=== PATIENT | male | born 1960 | race Caucasian/White ===

== ENCOUNTER 2017-06-29 09:50 | Inpatient (IN) ==
[2017-06-29] MEDS ORDERED: 0.9 % SODIUM CHLORIDE 1,000 ML IV ONE ×2 (10:05→12:10)
[2017-06-29] MEDS ORDERED: ONDANSETRON 4 MG/2 ML VIAL IV ONE (10:05)
[2017-06-29] MEDS ORDERED: ACETAMINOPHEN 325 MG TABLET PO ONE (10:11)
--- NOTE | 2017-06-29 10:13 | Emergency Department Note ---
Headache HPI - General Chief Complaint: Headache Stated Complaint: severe headache,n/v, achy,diahrrea, ill for 7 days Time Seen by Provider: 06/29/17 09:53 Mode of arrival: ambulatory Limitations: no limitations - Related Data Home Medications Medication Instructions Recorded Confirmed No Known Home Meds [No Known Home 06/27/17 06/27/17 Meds] Allergies Allergy/AdvReac Type Severity Reaction Status Date / Time Opioids - Morphine Analogues AdvReac Mild Vomiting Verified 06/29/17 11:10 Review of Systems All systems ED: reviewed and negative except as stated. Headache PMH - Past Medical History Medical history: Reports: other (Sinusitis, gastroenteritis) - Social History smoking status: Current every day smoker Physical Exam Limitations: no limitations Course Course Narrative: At [address] Gutierrez, the hospitalist who agrees to admit the patient. Patient's requiring oxygen, has hyponatremia, and bilateral pneumonia. Vital Signs Temperature 99.3 F H 06/29/17 09:51 Pulse Rate 88 06/29/17 09:51 Respiratory Rate 16 06/29/17 09:51 Blood Pressure 115/68 06/29/17 09:51 Pulse Oximetry (%) 89 L 06/29/17 09:51 Temperature 101.0 F H 06/29/17 11:03 Pulse Rate 78 06/29/17 11:01 Respiratory Rate 16 06/29/17 09:51 Blood Pressure 112/71 06/29/17 11:01 Pulse Oximetry (%) 96 06/29/17 11:01 Headache - Lab Data Lab results reviewed: Yes I reviewed the patient's lab results. Result diagrams: 06/29/17 10:08 06/29/17 10:08 Lab Results 06/29/17 06/29/17 06/29/17 Range/Units 10:08 10:08 10:08 WBC 9.0 (4.5-11.0) K/mcL RBC 4.29 L (4.50-5.90) M/mcL Hgb 14.4 (13.5-16.5) g/dL Hct 41.8 (41.0-55.0) % MCV 97.5 (80.0-100.0) fL MCH 33.5 (26.0-34.0) pg MCHC 34.3 (31.0-36.0) g/dL RDW 14.9 H (11.5-14.5) % Plt Count 138 L (140-440) K/mcL MPV 7.9 (7.4-10.4) fL Gran % 88.0 H (38.0-78.0) % Lymph % (Auto) 5.1 L (15.5-49.0) % [place] % (Auto) 6.9 (1.0-12.0) % Eos % (Auto) 0 (0.0-7.0) % Baso % (Auto) 0 (0.0-2.0) % Gran # 7.9 (1.8-8.0) K/mcL Lymph # (Auto) 0.5 L (1.5-4.8) K/mcL [place] # (Auto) 0.6 (0.1-0.9) K/mcL Eos # (Auto) 0 (0.0-0.7) K/mcL Baso # (Auto) 0 (0.0-0.3) K/mcL VBG Lactic Acid 1.0 (0.5-2.2) mmol/L Sodium 129 L (133-145) mmol/L Potassium 3.4 (3.3-5.1) mmol/L Chloride 90 L (96-108) mmol/L Carbon Dioxide 27 (22-30) mmol/L Anion Gap 12.0 (8-16) BUN 9 (6-20) mg/dl Creatinine 0.8 (0.7-1.2) mg/dl GFR Calculation 101 Glucose 128 H (70-105) mg/dL Calcium 8.1 L (8.6-10.4) mg/dl Total Bilirubin 0.5 (0.0-1.0) mg/dL AST 22 (0-37) U/l ALT 10 (0-40) U/l Alkaline Phosphatase 51 (39-117) U/L Total Protein 6.0 (5.9-8.4) gm/dL Albumin 3.4 (3.2-5.2) gm/dL Globulin 2.6 (2.2-3.7) gm/dL Albumin/Globulin Ratio 1.3 (1.0-2.3) - Radiology Data Radiology results reviewed: Yes I reviewed the patient's radiology results. Disposition Pt seen by ROLL FORGER/PA only: Yes Clinical Impression: Pneumonia, Hypoxia, Hyponatremia, Bilateral pleural effusion Disposition: Xfer As Inpt ([facility]) Condition: Good Time of Disposition: 11:20
--- NOTE | 2017-06-29 10:35 | Cat Scan Report ---
CLINICAL INFORMATION: Headache for seven days COMPARISON: None. TECHNIQUE: 2.5 mm helical slices were obtained in the skull base to vertex. Following reconstruction, axial reformatted images were reviewed at bone and parenchymal windows. The exam was performed using radiation dose optimization techniques including, but not limited to, automated exposure control, adjustment of the mA and/or kV according to patient size and use of iterative reconstruction technique. FINDINGS: The ventricles, sulci, fissures, and cisterns are normal in size and configuration. No extra-axial fluid collections are identified. The cerebrum, brainstem and cerebellum are unremarkable. There is no evidence of hemorrhage, mass effect, or edema. Bone windows show no osseous abnormality. IMPRESSION: Normal head CT without contrast. Interpreted and Authenticated by: Stephon Romano 06/29/17
[2017-06-29 10:37] LABS: Basophils # (Auto) 0 K/mcL (0.0-0.3); Basophils % (Auto) 0 % (0.0-2.0); Eosinophils # (Auto) 0 K/mcL (0.0-0.7); Eosinophils % (Auto) 0 % (0.0-7.0); Lymphocytes # (Auto) 0.5 K/mcL (1.5-4.8); Lymphocytes % (Auto) 5.1 % (15.5-49.0); Mean Cell Volume 97.5 fL (80.0-100.0); Mean Corpuscular HGB Conc 34.3 g/dL (31.0-36.0); Mean Corpuscular Hemoglobin 33.5 pg (26.0-34.0); Monocytes # (Auto) 0.6 K/mcL (0.1-0.9); Monocytes % (Auto) 6.9 % (1.0-12.0); Platelet Count 138 K/mcL (140-440); RBC 4.29 M/mcL (4.50-5.90); Red Cell Distribution Width 14.9 % (11.5-14.5)
--- NOTE | 2017-06-29 10:48 | XRay Report ---
CLINICAL INFORMATION: Fever and shortness of breath and hypoxia COMPARISON: 06/27/2017 FINDINGS: Heart size, mediastinal pulmonary vessels are unremarkable. There are now moderate-sized fascial biliary infiltrates in the left mid and both lower lung wood which have progressed considerably since the previous study. Small bilateral pleural effusions noted. Bones and soft tissues are normal. IMPRESSION: Moderate sized patchy infiltrates in the left mid and both lower lungs with small bilateral pleural effusions. Interpreted and Authenticated by: Stephon Romano 06/29/17
[2017-06-29] MEDS ORDERED: cefTRIAXone 1 GM VIAL IV ONE (10:54)
[2017-06-29 11:05] LABS: ALT/SGPT 10 U/l (0-40); Albumin 3.4 gm/dL (3.2-5.2); Albumin/Globulin Ratio 1.3 (1.0-2.3); Alkaline Phosphatase 51 U/L (39-117); Blood Urea Nitrogen 9 mg/dl (6-20)
[2017-06-29 11:26] LABS: Appearance,Urine CLEAR; Bacteria,Urine 0 /hpf (0); Bilirubin,Urine NEG (NEG); Color,Urine YELLOW; Glucose,Urine (UA) NEGATIVE (NEG); Leukocyte Esterase,Urine NEG /uL (NEG); Mucus,Urine FEW /hpf (0); Protein,Urine 30 mg/dL (NEG); Specific Gravity,Urine 1.019 (1.000-1.035); Urine Blood 0.03 mg/dL (<0.03); Urine RBC 10 /hpf (0-1); Urine Squamous Epithelial Cell 0 /hpf (0-4); Urine WBC 2 /hpf (0-4)
--- NOTE | 2017-06-29 11:46 | Internal Med History&Physical ---
Medical - H&P: HPI Patient information: Note initiated : 06/29/17 at 11:45 am Service Date, if different from initiated Date: [] Patient: Randy Child a 57 y/o M admitted on for severe headache,n/v, cris, terence, ill for 7 days. Chief Complaint: [] History of present illness: Mr. Child is a 57 year old Male, with no pmh, presents to the ER today with complaints of not feeling well x 1 week, headache, severe x 1 week, decreased appetitie, nausea and vomiting. The patient had flu like illness and was seen in the ER opn 06/27/17, X ray chest then showed only mild interstitial inflmmation. The patient presents again with headache, nausea and vomiting, noting has not felt well since then, denies any sick contacts, homeless. The patient notes his headache is all over, severe, throbbing, worse iwth light and noise. He reports nausea and vomiting, poor oral intake x 1 week, he has no mucous or blood in stools or vomitus. He has weakness, fatigue, cough, unable to tell me the quality of sputum production. given that his symptoms have not improved, he presented to the hospital for further evaluation. THis time he had a fever 101.7, x ray shows vane infiltrates, wbc normal, Low sodium at 129, admitted to the hospital for further management. All systems: reviewed and no additional remarkable complaints except as stated ( as per HPI) Medical - H&P: PMH Medical history: gerd Surgical history: none Pertinent family history: h/o cancer in family, all members, but pt not sure what type of cancer. Social history: homeless smoker 1pack a day, declined nicotine replacement thc user no etoh denies other substance use. Medical - H&P: Meds Home Medications Medication Instructions Recorded Confirmed Type No Known Home Meds [No Known Home 06/27/17 06/27/17 History Meds] Allergies Allergy/AdvReac Type Severity Reaction Status Date / Time Opioids - Morphine Analogues AdvReac Mild Vomiting Verified 06/29/17 11:10 Medical - H&P: Exam - Constitutional Vitals: Temp Pulse Resp BP Pulse Ox 101.0 F H 81 16 124/97 97 06/29/17 11:03 06/29/17 11:31 06/29/17 09:51 06/29/17 11:31 06/29/17 11:31 Exam: GENERAL: The patient is a well-developed, well-nourished in no apparent distress. Is alert and oriented x3. VITAL SIGNS: Reviewed and as noted elsewhere. HEENT: Head is normocephalic and atraumatic. Extraocular muscles are intact. Pupils are equal, round, and reactive to light. Nares appeared normal. Mouth appears any without lesions. Mucous membranes are dry. NECK: Normal to inspection, Supple, No lymphadenopathy or thyromegaly. LUNGS: Air entry equal on both sides, no wheezing, crackles or rhonchi noted. No accessory muscles of respiration HEART: Regular rate and rhythm normal, S1 and S2 heard, no Gallop, S3 or Rub Noted, No Gross murmur heard. ABDOMEN: Soft, nontender, and nondistended. Positive bowel sounds. No hepatosplenomegaly was noted. EXTREMITIES: No cyanosis, clubbing, rash, lesions or edema. NEUROLOGIC: Cranial nerves II through XII are grossly intact. Motor and Sensory System Grossly Intact PSYCHIATRIC: Normal affect, Normal Mood. Appropriate Behavior. SKIN: No ulceration or wounds noted, No jaundice, No rash noted. Medical - H&P: Reslt - Labs CBC & Chem 7: 06/29/17 10:08 06/29/17 10:08 Labs: Short CBC 06/29/17 Range/Units 10:08 WBC 9.0 (4.5-11.0) K/mcL Hgb 14.4 (13.5-16.5) g/dL Hct 41.8 (41.0-55.0) % Plt Count 138 L (140-440) K/mcL BMP 06/29/17 10:08 Sodium 129 L Potassium 3.4 Chloride 90 L Carbon Dioxide 27 BUN 9 Creatinine 0.8 Glucose 128 H Calcium 8.1 L Liver Function 06/29/17 Range/Units 10:08 Total Bilirubin 0.5 (0.0-1.0) mg/dL AST 22 (0-37) U/l ALT 10 (0-40) U/l Alkaline Phosphatase 51 (39-117) U/L Albumin 3.4 (3.2-5.2) gm/dL Urine 06/29/17 Range/Units 11:05 Urine Color Yellow Urine Appearance Clear Urine pH 6.0 (5.0-9.0) Ur Specific [place] 1.019 (1.000-1.035) Urine Protein 30 A (NEG) mg/dL Urine Glucose (UA) Negative (NEG) mg/dL Medical - H&P: A/P - Narrative A/P Narrative: A/P Sepsis Multifocal Pneumonia Headache Acute Hypoxic Resp failure hyponatremia Plan Admit to med surgery Oxygen supplementation blood cx and sputum cx ordered, mycoplasma and urine leginella antigen ordered, check HIV status, IV rocephin and IV zithromax for now. BP is stable, latate is neg. IV fluids. DVT hep sq Diet regular
[2017-06-29] MEDS ORDERED: oxyCODONE HCL 5 MG TABLET PO PRN (12:10)
[2017-06-29] MEDS ORDERED: ACETAMINOPHEN 325 MG TABLET PO PRN (12:10)
[2017-06-29] MEDS ORDERED: cefTRIAXone 1 GM in DEXTROSE 5% IN WATER 50 ML IV SCH (12:10)
[2017-06-29] MEDS ORDERED: AZITHROMYCIN 500 MG in DEXTROSE 5% IN WATER 250 ML IV ONE (12:10)
[2017-06-29] MEDS ORDERED: HYDROmorphone 2 MG/ML VIAL IV PRN (12:10)
[2017-06-29] MEDS ORDERED: POTASSIUM CHLORIDE 40 MEQ in DEXTROSE 5% IN WATER 500 ML IV ONE (12:10)
[2017-06-29] MEDS: 0.9 % SODIUM CHLORIDE 1,000 ML IV SCH ×3 (12:56→21:23)
[2017-06-29] MEDS: HEPARIN 5,000 UNIT/ML VIAL SQ SCH ×2 (13:04→21:24)
[2017-06-29] MEDS: 0.9 % SODIUM CHLORIDE 10 ML SYRINGE IV SCH ×2 (14:09→21:24)
[2017-06-29] MEDS: ONDANSETRON 4 MG/2 ML VIAL IV PRN ×2 (16:53→23:00)
[2017-06-29] MEDS: IBUPROFEN 600 MG TABLET PO PRN (16:53)
[2017-06-29] MEDS: PROMETHAZINE 25 MG/ML VIAL IV PRN (19:47)
[2017-06-30] MEDS: 0.9 % SODIUM CHLORIDE 1,000 ML IV SCH ×2 (00:50→04:29)
[2017-06-30] MEDS: PROMETHAZINE 25 MG/ML VIAL IV PRN (01:19)
[2017-06-30] MEDS: 0.9 % SODIUM CHLORIDE 10 ML SYRINGE IV SCH ×3 (06:30→20:20)
[2017-06-30 06:33] LABS: Basophils # (Auto) 0 K/mcL (0.0-0.3); Basophils % (Auto) 0.1 % (0.0-2.0); Eosinophils # (Auto) 0.2 K/mcL (0.0-0.7); Granulocytes % (Auto) 88.3 % (38.0-78.0); Lymphocytes # (Auto) 0.6 K/mcL (1.5-4.8); Lymphocytes % (Auto) 6.2 % (15.5-49.0); Mean Cell Volume 98.4 fL (80.0-100.0); Mean Corpuscular HGB Conc 34.7 g/dL (31.0-36.0); Mean Corpuscular Hemoglobin 34.1 pg (26.0-34.0); Monocytes # (Auto) 0.3 K/mcL (0.1-0.9); Monocytes % (Auto) 3.4 % (1.0-12.0); Platelet Count 109 K/mcL (140-440)
[2017-06-30 07:05] LABS: ALT/SGPT 13 U/l (0-40); Albumin 3.1 gm/dL (3.2-5.2); Albumin/Globulin Ratio 1.4 (1.0-2.3); Alkaline Phosphatase 62 U/L (39-117); Bilirubin,Direct < 0.2 mg/dL (0.0-0.3); Blood Urea Nitrogen 10 mg/dl (6-20); Gamma Glutamyl Transpeptidase 39 U/L (8-61)
[2017-06-30] MEDS: PANTOPRAZOLE 40 MG VIAL IV SCH ×2 (07:29→17:18)
[2017-06-30] MEDS: cefTRIAXone 1 GM VIAL IV SCH (08:25)
[2017-06-30] MEDS: HEPARIN 5,000 UNIT/ML VIAL SQ SCH ×2 (08:25→20:19)
[2017-06-30] MEDS: AZITHROMYCIN 500 MG in DEXTROSE 5% IN WATER 250 ML IV SCH (09:57)
--- NOTE | 2017-06-30 10:30 | Internal Med Progress Note ---
Medical - PN: Subj Patient information: Note initiated : 06/30/17 at 10:28 am Service Date, if different from initiated Date: [] Patient: Randy Child 57 y/o M admitted on 06/29/17 for severe headache,n/v, achy,diahrrea, ill for 7 days. Chief Complaint: [] Interval history: Mr. Child is a 57 year old Male, with no pmh, presents to the ER today with complaints of not feeling well x 1 week, headache, severe x 1 week, decreased appetitie, nausea and vomiting. The patient had flu like illness and was seen in the ER opn 06/27/17, X ray chest then showed only mild interstitial inflmmation. The patient presents again with headache, nausea and vomiting, noting has not felt well since then, denies any sick contacts, homeless. The patient notes his headache is all over, severe, throbbing, worse iwth light and noise. He reports nausea and vomiting, poor oral intake x 1 week, he has no mucous or blood in stools or vomitus. He has weakness, fatigue, cough, unable to tell me the quality of sputum production. given that his symptoms have not improved, he presented to the hospital for further evaluation. THis time he had a fever 101.7, x ray shows vane infiltrates, wbc normal, Low sodium at 129, admitted to the hospital for further management. Jun 30 patient seen examined, daugther at bedside pt feeling better, but still has intermittent cough and nausea. He notes he has significant gerd symptoms for which he takes prevacid intermittently, has not had eval done, does not have pcp advised to establish pcp/ [facility] and hopefully get workup done for GERd plan to use iv ppi for now, labs better, pt oxygen needs much lower today, did not complain of any headache Pertinent ROS: Denies headache, dizziness Denies chest pain, palpitations present cough or shortness of breath, improving. Denies abdominal pain, nausea or vomiting. - Constitutional Vitals: Vital Signs Temp Pulse Resp BP Pulse Ox 98.4 F 76 16 130/72 93 06/30/17 06:49 06/30/17 07:41 06/30/17 06:49 06/30/17 06:49 06/30/17 07:41 Period Temp Pulse Resp BP Sys/[place] Pulse Ox Last 24 Hr 97.8 F-101.0 F 69-81 16-20 111-148/57-97 90-97 Intake and Output 06/29/17 06/30/17 06/30/17 21:59 05:59 13:59 Intake Total 1290 / 1290 1400 / 1400 Output Total 275 / 275 100 / 100 Balance 1015 / 1015 1300 / 1300 Weight 192 lb 8 oz Intake & Output: Intake & Output 06/29/17 06/30/17 06/30/17 21:59 05:59 13:59 Intake Total 1290 / 1290 1400 / 1400 Output Total 275 / 275 100 / 100 Balance 1015 / 1015 1300 / 1300 Weight 192 lb 8 oz Intake: IV 770 / 770 1000 / 1000 Sodium Chloride 0.9% 1,000 ml @ 1000 / 1000 150 mls/hr IV .[id number] [facility] Rx#: [id number] Oral 520 / 520 400 / 400 Output: Void Amount 275 / 275 Emesis 100 / 100 Other: Meal Dinner Percent of Meal Consumed 10 Feeding Ability Independent # Voids 1 Exam: Constitutional; Afebrile, cooperative, alert, not in distress. Eyes- No icterus, , No periorbital swelling Ears- Ext ear normal, hearing normal to conversation. Neck- Midline trachea, supple Respiratory system: Air Entry equal on both sides, No crackles or wheezing, no rhonchi. CVS- Rate rhythm regular, S1,S2 heard, no gallop, no rub. Abdomen- Soft nontender abdomen, no organomegaly, no tenderness, no guarding or rigidity, SECURITY MESSENGER- AOOx3, moving all extremities, no gross focal deficit noted. Medical - PN: Obj Da - Labs CBC & Chem 7: 06/30/17 05:10 06/30/17 05:10 Labs: Abnormal Lab Results 06/30/17 06/30/17 06/29/17 05:10 05:10 11:05 RBC 3.90 L Hgb 13.3 L Hct 38.4 L MCH 34.1 H RDW 15.0 H Plt Count 109 L Gran % 88.3 H Lymph % (Auto) 6.2 L Gran # 8.3 H Lymph # (Auto) 0.6 L Sodium 132 L Chloride Creatinine 0.6 L Glucose Uric Acid 2.0 L Calcium 8.0 L Phosphorus 2.5 L Lactate Dehydrogenase 263 H Total Protein 5.3 L Albumin 3.1 L Urine Protein 30 A Urine Ketones 20 A Urine Occult Blood 0.03 A Urine Urobilinogen 4.0 A Urine RBC 10 H 06/29/17 06/29/17 10:08 10:08 RBC 4.29 L Hgb Hct MCH RDW 14.9 H Plt Count 138 L Gran % 88.0 H Lymph % (Auto) 5.1 L Gran # Lymph # (Auto) 0.5 L Sodium 129 L Chloride 90 L Creatinine Glucose 128 H Uric Acid Calcium 8.1 L Phosphorus Lactate Dehydrogenase Total Protein Albumin Urine Protein Urine Ketones Urine Occult Blood Urine Urobilinogen Urine RBC Meds: Medications Acetaminophen (Tylenol) 650 mg PO Q6HP PRN PRN Reason: PAIN/FEVER > 101 Ceftriaxone Sodium (Rocephin) 1 gm IV DAILY [facility] Last Admin: 06/30/17 08:25 Dose: 1 gm Heparin Sodium (Porcine) (Heparin) 5,000 unit SQ Q12 [facility] Last Admin: 06/30/17 08:25 Dose: 5,000 unit Hydromorphone HCl (Dilaudid) 0.5 mg IV Q2HP PRN PRN Reason: PAIN LEVEL > 6 Azithromycin 500 mg/ Dextrose 250 mls @ 250 mls/hr IV DAILY [facility] Stop: 07/03/17 09:59 Last Admin: 06/30/17 09:57 Dose: 250 mls/hr Ibuprofen (Motrin) 600 mg PO QIDP PRN PRN Reason: PAIN/FEVER > 101 Last Admin: 06/29/17 16:53 Dose: 600 mg Ondansetron HCl (Zofran) 4 mg IV Q6HP PRN PRN Reason: Nausea And Vomiting Last Admin: 06/29/17 23:00 Dose: 4 mg Oxycodone HCl (Roxicodone) 5 mg PO Q4HP PRN PRN Reason: PAIN LEVEL 3-6 Pantoprazole Sodium (Protonix) 40 mg IV BIDAC [facility] Last Admin: 06/30/17 07:29 Dose: 40 mg Promethazine HCl (Phenergan) 12.5 mg IV Q6HP PRN PRN Reason: Nausea And Vomiting Last Admin: 06/30/17 01:19 Dose: 12.5 mg Sodium Chloride (Saline Flush) 10 ml IV Q8 [facility] Last Admin: 06/30/17 06:30 Dose: Not Given Medical - PN: A/P - Time Spent With Patient Total time spent is greater than 50% in coordination of care (as documented) at patient's floor/unit and/or counseling patient: - Narrative A/P Narrative: A/P Sepsis: due to pna, improved, wbc normal, fever curve improving, normal lactate , nearly resolved. Multifocal Pneumonia: HIV neg, CAP, on IV azithromycin and rocehin, clinically improving, microbiology neg so far, sputum cx pending. Headache: prn pain meds, no complaints today Acute Hypoxic Resp failure: Due to pna, on 1 L oxygen now, monitor, wean off as tolerated. hyponatremia: improving > 130 now, on IVF, monitor. GERD / Nasuea: on IV PPI for now, needs workup, to be done outpt DVT hep sq Diet regular Medical - PN: Qual - VTE Deep Vein Thrombosis/Pulmonary Embolism Present on Admission: No
[2017-06-30] MEDS: IBUPROFEN 600 MG TABLET PO PRN (20:21)
[2017-07-01 05:50] LABS: Basophils # (Auto) 0 K/mcL (0.0-0.3); Basophils % (Auto) 0.3 % (0.0-2.0); Eosinophils # (Auto) 0.1 K/mcL (0.0-0.7); Eosinophils % (Auto) 1.5 % (0.0-7.0); Granulocytes % (Auto) 68.9 % (38.0-78.0); Lymphocytes # (Auto) 1.5 K/mcL (1.5-4.8); Lymphocytes % (Auto) 20.9 % (15.5-49.0); Mean Cell Volume 98.6 fL (80.0-100.0); Mean Corpuscular HGB Conc 34.4 g/dL (31.0-36.0); Mean Corpuscular Hemoglobin 33.9 pg (26.0-34.0); Monocytes # (Auto) 0.6 K/mcL (0.1-0.9); Monocytes % (Auto) 8.4 % (1.0-12.0); Platelet Count 114 K/mcL (140-440); RBC 3.84 M/mcL (4.50-5.90); Red Cell Distribution Width 14.9 % (11.5-14.5)
[2017-07-01] MEDS: 0.9 % SODIUM CHLORIDE 10 ML SYRINGE IV SCH (05:52)
[2017-07-01 06:27] LABS: ALT/SGPT 21 U/l (0-40); Albumin 2.7 gm/dL (3.2-5.2); Albumin/Globulin Ratio 1.1 (1.0-2.3); Alkaline Phosphatase 50 U/L (39-117); Bilirubin,Direct < 0.2 mg/dL (0.0-0.3); Blood Urea Nitrogen 11 mg/dl (6-20); Gamma Glutamyl Transpeptidase 34 U/L (8-61); Uric Acid 2.6 mg/dL (2.5-8.0)
[2017-07-01] MEDS: PANTOPRAZOLE 40 MG VIAL IV SCH (08:15)
[2017-07-01] MEDS: cefTRIAXone 1 GM VIAL IV SCH (08:16)
[2017-07-01] MEDS: HEPARIN 5,000 UNIT/ML VIAL SQ SCH (09:39)
[2017-07-01] MEDS: AZITHROMYCIN 500 MG in DEXTROSE 5% IN WATER 250 ML IV SCH (09:39)
--- NOTE | 2017-07-01 10:03 | Discharge Summary ---
Medical - DS: Prov Patient information: Note initiated : 07/01/17 at 10:00 am Service Date, if different from initiated Date: [] Patient: Randy Child 57 y/o M admitted on 06/29/17 for severe headache,n/v, achy,diahrrea, ill for 7 days. Chief Complaint: [] Date of admission: 06/29/17 12:04 Discharge date: 07/01/17 Admitting clinician: Ariadne Briceño Consults: 06/29/17 11:24 Consult to Physician [CONS] Stat Comment: Consulting Provider: Ariadne Briceño Reason For Exam: Physician to Consult Discharging clinician: Ariadne Briceño Medical - DS: Meds - Discharge Medications Prescriptions: Levofloxacin [Levaquin] 750 mg PO DAILY #5 tab Active and Home Medications: Home Medications Lansoprazole [Prevacid] 15 mg PO PRN PRN 06/30/17 [History Confirmed 06/30/17 Last Taken 06/22/17] Medical - DS: Hosp Hospital course: Mr. Child is a 57 year old Male, with no pmh, presented to the ER today with complaints of not feeling well x 1 week, headache, severe x 1 week, decreased appetite, nausea and vomiting. The patient had flu like illness and was seen in the ER opn 06/27/17, X ray chest then showed only mild interstitial inflammation. The patient presents again with headache, nausea and vomiting, noting has not felt well since then, denies any sick contacts, homeless. The patient notes his headache is all over, severe, throbbing, worse iwth light and noise. He reports nausea and vomiting, poor oral intake x 1 week, he has no mucous or blood in stools or vomitus. He has weakness, fatigue, cough, unable to tell me the quality of sputum production. given that his symptoms have not improved, he presented to the hospital for further evaluation. The patient had a fever 101.7, x ray shows vane infiltrates, wbc normal, Low sodium at 129, admitted to the hospital for further management. The patient was treated with IV rocephin and azithromycin for community acquired pneumonia, the patient clinical symptoms improved sigficantly, his fever curve improved. Microbiology of sputum positive for step pneumoniae, mycoplasma neg, blood cx neg. The patient is able to tolerate po diet well he was ambulating well, he will be discharged on oral levofloxacin 750mg qd x 5 more days. he has chr gerd and takes prevacid intermittently, he was give IV protonix to help with his symptoms, he was advised to use OTC pepcid, and establish care with PCP to have this worked up further. the patient noted that he does not have money to buy his medications, the case management is working with him to help him get his antibiotics. Discharge diagnosis: Pneumonia - Time Spent with Patient Total time spent providing and/or coordinating discharge services: Greater than 30 minutes Medical - DS: Exam - Constitutional Vitals: Vital Signs Temp Pulse Pulse Resp BP BP Pulse Ox 07/01/17 08:00 97.6 F 64 64 20 132/74 96 07/01/17 04:00 98.4 F 74 16 134/86 96 07/01/17 00:00 98.2 F 69 16 128/57 92 06/30/17 20:00 100.8 F H 72 18 116/75 91 06/30/17 16:00 97.7 F 18 128/70 91 06/30/17 12:00 97.9 F 16 130/72 90 Intake and Output 06/30/17 07/01/17 07/01/17 21:59 05:59 13:59 Intake Total 880 / 880 Balance 880 / 880 Intake: Oral 880 / 880 Other: Meal ice cream Percent of Meal Consumed 100% Feeding Ability Independent # Voids 2 1 Weight 193 lb General appearance: no acute distress - Head Head exam: Present: atraumatic, normal inspection - Neck Neck exam: Present: normal inspection - Respiratory Respiratory exam: Present: normal respiratory exam. Absent: respiratory distress, rhonchi, stridor, wheezes - Cardiovascular Cardiovascular exam: Present: +S1, +S2 - Neurological Exam Neurological exam: Present: alert, CN II-XII intact, oriented X3 - Skin Skin exam: Absent: cyanosis, diaphoretic, erythema Medical - DS: Data Labs on day of discharge: Labs from last 24 hours 07/01/17 07/01/17 04:20 04:20 WBC 6.9 RBC 3.84 L Hgb 13.0 L Hct 37.9 L MCV 98.6 MCH 33.9 MCHC 34.4 RDW 14.9 H Plt Count 114 L MPV 8.1 Gran % 68.9 Lymph % (Auto) 20.9 [place] % (Auto) 8.4 Eos % (Auto) 1.5 Baso % (Auto) 0.3 Gran # 4.8 Lymph # (Auto) 1.5 [place] # (Auto) 0.6 Eos # (Auto) 0.1 Baso # (Auto) 0 Sodium 136 Potassium 3.4 Chloride 98 Carbon Dioxide 26 Anion Gap 12.0 BUN 11 Creatinine 0.8 GFR Calculation 101 Glucose 112 H Uric Acid 2.6 Calcium 8.1 L Phosphorus 2.3 L Magnesium 2.0 Total Bilirubin 0.3 Direct Bilirubin < 0.2 GGT 34 AST 31 ALT 21 Alkaline Phosphatase 50 Lactate Dehydrogenase 270 H Total Protein 5.2 L Albumin 2.7 L Globulin 2.5 Albumin/Globulin Ratio 1.1 Triglycerides 126 Preliminary micro results at discharge 06/29/17 12:35 Sputum Culture - Preliminary Sputum - Expectorated Streptococcus pneumoniae 06/29/17 11:30 Blood Culture - Preliminary Blood 06/29/17 11:35 Blood Culture - Preliminary Blood 06/29/17 14:53 Sputum Culture - Preliminary Sputum - Expectorated Presumptive strep.pneumoniae Medical - DS: A/P - Patient/Caregiver Discharge Instructions Activity: increase activity as tolerated Diet: Regular Diet Additional Instructions: You were admitted to the hospital due to Pneumonia You need to take antibiotics for 5 more days, one pill once daily. Please talk to the case management, who will help you with your medications You need to establish care with a primary care provider who will help you with your chronic healthcare needs and help you evaluate why you have severe gastric reflux. You may need a referral to a speech therapy director for an Endoscopy, this can be arranged by your new primary care provider. Go to the ER if worsening symptoms, chest pains, fever, or any other acute concern. - Follow up Plan Disposition: Home, Self-Care Prognosis: Fair Rehab Potential: Fair I certify that the patient requires SNF services: No Overall status at discharge: patient is progressing back to baseline Medical - DS: Qual - VTE Deep Vein Thrombosis/Pulmonary Embolism Present on Admission: No
[2017-07-01] MEDS: ONDANSETRON 4 MG/2 ML VIAL IV PRN (10:39)
[2017-07-02 07:25] LABS: Legionella pneumophilia Ag, Ur NOT DETECTED
--- NOTE | 2017-07-06 10:21 | Emergency Department Note ---
Weakness HPI - General Chief complaint: Headache Stated complaint: severe headache,n/v, achy,ana laurarea, ill for 7 days Time Seen by Provider: 06/29/17 09:53 Source: patient Mode of arrival: ambulatory Limitations: no limitations - History of Present Illness HPI Narrative: 57-year-old male presents with continued weakness, shortness of breath, and generally not feeling well. He also continues to have nausea and vomiting. He was seen here on June 27 and diagnosed with gastroenteritis. He did have flulike symptoms at the time and his influenza was negative. He states he continues to have a bad headache. The headache is all over. He does have photosensitivity and sound bothers him as well. No neck pain or stiffness. Reports decreased appetite. He is vomiting a few times a day. No diarrhea. Positive chills, unknown fever. His temperature is 101.7 on arrival. States he just generally feels very poor. He does have a nonproductive cough the last 3 or 4 days. The cough does seem to be getting worse. Denies chest pain. He is homeless but has currently stated with his daughter the past few days as she was worried about his health. Denies abdominal pain. No home treatments. MD Complaint: generalized weakness, lack of energy Associated symptoms: Reports: fever/chills, headaches, loss of appetite, nausea/ vomiting, myalgias. Denies: chest pain, confusion, dark stools, diaphoresis, dysuria, rash, shortness of breath, syncope - Related Data Home Medications Medication Instructions Recorded Confirmed Lansoprazole [Prevacid] 15 mg PO PRN PRN 06/30/17 06/30/17 Previous Rx's Medication Instructions Recorded Levofloxacin [Levaquin] 750 mg PO DAILY #5 tab 07/01/17 Allergies Allergy/AdvReac Type Severity Reaction Status Date / Time Opioids - Morphine Analogues AdvReac Mild Vomiting Verified 06/29/17 11:10 Review of Systems All systems ED: reviewed and negative except as stated. Past Medical History - Past Medical History [facility] Narrative: Medical History Sinusitis (Acute) Medical history: Reports: no medical history (Denies any medical problems. He has had sinusitis and gastroenteritis fairly recently), other (Sinusitis, gastroenteritis) Surgical history ED: Reports: non-contributory - Social History smoking status: Current every day smoker Alcohol use: Reports: None Drug use: Reports: none Physical Exam Limitations: no limitations General appearance: alert, in no apparent distress Head: atraumatic, normocephalic, normal inspection Eye: Present: normal appearance, PERRL. Absent: conjunctival injection, nystagmus ENT: normal exam, normal oropharynx, mucous membranes moist, TM's normal bilaterally, normal external ear exam Neck: Present: normal inspection, trachea midline. Absent: tenderness, lymphadenopathy Chest: Present: normal inspection, symmetric chest wall rise Respiratory: Present: wheezes (Expiratory wheezing to the bases bilaterally and slightly diminished at the bases bilaterally.). Absent: respiratory distress, stridor, accessory muscle use Cardiovascular: Present: regular rate, normal heart sounds Abdominal: Present: soft, normal bowel sounds. Absent: distention, tenderness, guarding Extremities: Present: normal inspection, normal capillary refill. Absent: pedal edema Neurological: Present: alert, oriented X3, normal gait, other (He is slightly slow moving complaining of generalized weakness) Psychiatric: Present: normal affect, normal mood Skin: Present: warm, dry, intact, normal color. Absent: rash, cyanosis, diaphoresis, erythema Course Vital Signs Temperature 99.3 F H 06/29/17 09:51 Pulse Rate 88 06/29/17 09:51 Respiratory Rate 16 06/29/17 09:51 Blood Pressure 115/68 06/29/17 09:51 Pulse Oximetry (%) 89 L 06/29/17 09:51 Temperature 98.6 F 07/01/17 12:00 Pulse Rate 78 07/01/17 12:00 Respiratory Rate 20 07/01/17 12:00 Blood Pressure 120/78 07/01/17 12:00 Pulse Oximetry (%) 94 07/01/17 12:00 Weakness - MDM Narrative Medical decision making narrative: Bilateral infiltrates in the lungs on x-ray. Patient also has some hyponatremia. Has definitely declined since his last ER visit. I did speak with the hospitalist who agrees to admit the patient - Lab Data Lab results reviewed: Yes I reviewed the patient's lab results. Result diagrams: 07/01/17 04:20 07/01/17 04:20 Lab Results 06/29/17 06/29/17 06/29/17 Range/Units 10:08 10:08 10:08 WBC 9.0 (4.5-11.0) K/mcL RBC 4.29 L (4.50-5.90) M/mcL Hgb 14.4 (13.5-16.5) g/dL Hct 41.8 (41.0-55.0) % MCV 97.5 (80.0-100.0) fL MCH 33.5 (26.0-34.0) pg MCHC 34.3 (31.0-36.0) g/dL RDW 14.9 H (11.5-14.5) % Plt Count 138 L (140-440) K/mcL MPV 7.9 (7.4-10.4) fL Gran % 88.0 H (38.0-78.0) % Lymph % (Auto) 5.1 L (15.5-49.0) % Delta % (Auto) 6.9 (1.0-12.0) % Eos % (Auto) 0 (0.0-7.0) % Baso % (Auto) 0 (0.0-2.0) % Gran # 7.9 (1.8-8.0) K/mcL Lymph # (Auto) 0.5 L (1.5-4.8) K/mcL Delta # (Auto) 0.6 (0.1-0.9) K/mcL Eos # (Auto) 0 (0.0-0.7) K/mcL Baso # (Auto) 0 (0.0-0.3) K/mcL Differential Comment (()) VBG Lactic Acid 1.0 (0.5-2.2) mmol/L Sodium 129 L (133-145) mmol/L Potassium 3.4 (3.3-5.1) mmol/L Chloride 90 L (96-108) mmol/L Carbon Dioxide 27 (22-30) mmol/L Anion Gap 12.0 (8-16) BUN 9 (6-20) mg/dl Creatinine 0.8 (0.7-1.2) mg/dl GFR Calculation 101 Glucose 128 H (70-105) mg/dL Calcium 8.1 L (8.6-10.4) mg/dl Total Bilirubin 0.5 (0.0-1.0) mg/dL AST 22 (0-37) U/l ALT 10 (0-40) U/l Alkaline Phosphatase 51 (39-117) U/L Total Protein 6.0 (5.9-8.4) gm/dL Albumin 3.4 (3.2-5.2) gm/dL Globulin 2.6 (2.2-3.7) gm/dL Albumin/Globulin Ratio 1.3 (1.0-2.3) Urine Color Urine Appearance Urine pH (5.0-9.0) Ur Specific [place] (1.000-1.035) Urine Protein (NEG) mg/dL Urine Glucose (UA) (NEG) mg/dL Urine Ketones (NEG) mg/dL Urine Occult Blood (<0.03) mg/dL Urine Nitrate (NEG) Urine Bilirubin (NEG) mg/dL Urine Urobilinogen (NEG) mg/dL Ur Leukocyte Esterase (NEG) /uL Urine RBC (0-1) /hpf Urine WBC (0-4) /hpf Ur Squamous Epith Cells (0-4) /hpf Urine Bacteria (0) /hpf Urine Mucus (0) /hpf Ur Culture Indicated? Mycoplasma pneumon IgM (NEGATIVE) 06/29/17 06/29/17 Range/Units 10:08 11:05 WBC (4.5-11.0) K/mcL RBC (4.50-5.90) M/mcL Hgb (13.5-16.5) g/dL Hct (41.0-55.0) % MCV (80.0-100.0) fL MCH (26.0-34.0) pg MCHC (31.0-36.0) g/dL RDW (11.5-14.5) % Plt Count (140-440) K/mcL MPV (7.4-10.4) fL Gran % (38.0-78.0) % Lymph % (Auto) (15.5-49.0) % Delta % (Auto) (1.0-12.0) % Eos % (Auto) (0.0-7.0) % Baso % (Auto) (0.0-2.0) % Gran # (1.8-8.0) K/mcL Lymph # (Auto) (1.5-4.8) K/mcL Delta # (Auto) (0.1-0.9) K/mcL Eos # (Auto) (0.0-0.7) K/mcL Baso # (Auto) (0.0-0.3) K/mcL Differential Comment (()) VBG Lactic Acid (0.5-2.2) mmol/L Sodium (133-145) mmol/L Potassium (3.3-5.1) mmol/L Chloride (96-108) mmol/L Carbon Dioxide (22-30) mmol/L Anion Gap (8-16) BUN (6-20) mg/dl Creatinine (0.7-1.2) mg/dl GFR Calculation Glucose (70-105) mg/dL Calcium (8.6-10.4) mg/dl Total Bilirubin (0.0-1.0) mg/dL AST (0-37) U/l ALT (0-40) U/l Alkaline Phosphatase (39-117) U/L Total Protein (5.9-8.4) gm/dL Albumin (3.2-5.2) gm/dL Globulin (2.2-3.7) gm/dL Albumin/Globulin Ratio (1.0-2.3) Urine Color Yellow Urine Appearance Clear Urine pH 6.0 (5.0-9.0) Ur Specific [place] 1.019 (1.000-1.035) Urine Protein 30 A (NEG) mg/dL Urine Glucose (UA) Negative (NEG) mg/dL Urine Ketones 20 A (NEG) mg/dL Urine Occult Blood 0.03 A (<0.03) mg/dL Urine Nitrate Neg (NEG) Urine Bilirubin Neg (NEG) mg/dL Urine Urobilinogen 4.0 A (NEG) mg/dL Ur Leukocyte Esterase Neg (NEG) /uL Urine RBC 10 H (0-1) /hpf Urine WBC 2 (0-4) /hpf Ur Squamous Epith Cells 0 (0-4) /hpf Urine Bacteria 0 (0) /hpf Urine Mucus Few (0) /hpf Ur Culture Indicated? No Mycoplasma pneumon IgM Negative (NEGATIVE) - Radiology Data Radiology results reviewed: Yes I reviewed the patient's radiology results. Disposition Pt seen by [facility] only: No Clinical Impression: Pneumonia, Hypoxia, Hyponatremia, Bilateral pleural effusion Disposition: Xfer As Inpt ([facility]) Condition: Fair
== END 2017-07-01 12:24 | disposition home or self-care (01) | DRG 871 ==
LOC: ED 09:50 → MEDSUR 12:00
PROVIDERS: ADMIT Internal Medicine; ATTEND Internal Medicine